=== PATIENT | male | born 1975 | race Caucasian/White ===

== ENCOUNTER 2016-06-20 10:09 | Emergency (ER) | payer BC, OTHER ==
[~2016-06-20] VITALS: Wt 109.0 kg
[2016-06-20 11:17] LABS: ADD SCAN DIFF NO
[2016-06-20 11:20] LABS: BASOPHILS % 0.5 % (0.0-2.0); EOSINOPHILS # 0.3 10^3/ul (0.0-0.5); EOSINOPHILS % 4.9 % (0.0-7.0); HEMATOCRIT 44.2 % (42.0-52.0); HEMOGLOBIN 15.3 g/dl (14.0-18.0); LYMPHOCYTES # 1.7 10^3/ul (0.8-2.9); LYMPHOCYTES % 25.7 % (15.0-51.0); MEAN CORPUSCULAR HEMOGLOBIN 29.8 pg (29.0-33.0); MEAN CORPUSCULAR HGB CONC 34.6 g/dl (32.0-37.0); MEAN PLATELET VOLUME 10.2 fl (7.4-10.4); MONOCYTE # 0.6 10^3/ul (0.3-0.9); MONOCYTES % 8.6 % (0.0-11.0); NEUTROPHIL # 3.9 10^3/ul (1.6-7.5); PLATELET COUNT 232 10^3/UL (140-415); RED BLOOD COUNT 5.14 10^6/ul (4.70-6.10); RED CELL DISTRIBUTION WIDTH 12.3 % (11.5-14.5); WHITE BLOOD COUNT 6.5 10^3/ul (4.8-10.8)
[2016-06-20 11:27] LABS: CHLORIDE 107 mmol/L (97-110); POTASSIUM 4.4 mmol/L (3.5-5.1); SODIUM 144 mmol/L (135-144)
[2016-06-20 11:29] LABS: CREATININE 0.77 mg/dl (0.61-1.24)
[2016-06-20 11:30] LABS: ANION GAP 15 (8-16); BLOOD UREA NITROGEN 19 mg/dl (7-20); CALCIUM 8.9 mg/dl (8.4-10.2); CARBON DIOXIDE 26 mmol/L (21-31); CREATINE KINASE 130 IU/L (23-200); GLUCOSE 88 mg/dl (70-220)
[2016-06-20 11:31] LABS: INR 0.92; PARTIAL THROMBOPLASTIN TIME 27.3 Sec (25.0-35.0); PROTIME 12.4 Sec (12.2-14.2)
[2016-06-20 11:44] LABS: TROPONIN-I < 0.012 ng/ml (0.00-0.12)
--- NOTE | 2016-06-20 11:50 | RADRPT ---
PROCEDURE: XR Chest. CLINICAL INDICATION: Chest pain. TECHNIQUE: Single frontal view. COMPARISON: None. FINDINGS: The lungs are clear. The heart size is normal. There is no pleural effusion. There is no pneumothorax. IMPRESSION: 1. Normal chest radiograph. RPTAT: QQ .Bernard Acevedo MD, Date Time Electronically viewed and signed by .Bernard Acevedo MD, MD on 06/20/2016 11:50 .R/
[2016-06-20 12:06] LABS: D-DIMER 233.53 ng/ml (<460)
[2016-06-20] MEDS ORDERED: LORA1TAB PO (12:08)
[2016-06-20] MEDS ORDERED: SERT100T PO (12:08)
[2016-06-20] MEDS ORDERED: IBUP800T25 PO (12:17)
--- NOTE | 2016-06-20 12:17 | ERD ---
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 HPI Pleasant 41-year-old male who presents with chest pain. He describes sudden onset of chest pain that felt like electricity on the left side of his heart that lasted approximately 1 second. This is occurred several times over the past 1-2 hours. The patient does report a recent diagnosis of rhabdomyolysis status post resolution. No new medications. He denies any pleuritic pain, family history of remote DVT and IN but no sudden . The patient is feeling better at this time. He denies any neck pain or back pain, no numbness or tingling. ROS All systems reviewed and are negative except as per history of present illness. Medications Home Meds Reported Medications Lorazepam* (Lorazepam*) 1 Mg Tablet, 1 MG PO BID Y for ANXIETY, #30 TAB 06/20/16 Sertraline Hcl* (Zoloft*) 100 Mg Tablet, 100 MG PO DAILY, #30 TAB 06/20/16 Allergies Allergies: Coded Allergies: No Known Allergy (Unverified , 06/20/16) PMhx/Soc Hx Cardiac Disorders: Yes Hx Alcohol Use: Yes Hx Substance Use: No Hx Tobacco Use: No Smoking Status: Never smoker FmHx Family History: No diabetes Physical Exam Vitals Vital Signs Date Time Temp Pulse Resp B/P Pulse Ox O2 Delivery O2 Flow Rate FiO2 06/20/16 11:02 Nasal Cannula 2 06/20/16 10:11 99.9 71 20 145/70 98 Physical Exam General: Well developed, well nourished, no acute distress Head: Normocephalic, atraumatic. Eyes: Pupils equally reactive, EOM intact ENT: Moist mucous membranes Neck: Supple, no lymphadenopathy Respiratory: Lungs clear bilaterally, no distress Cardiovascular: RRR, no murmurs, rubs, or gallops Abdominal: Soft, non-tender, non-distended, no peritoneal signs : Deferred MSK: No edema, no unilateral swelling, 5/5 strength, no pulse deficits Neurologic: Alert and oriented, moving all extremities, normal speech, no focal weakness, no cerebellar signs Skin: No rash Psych: Normal mood Result Diagram: 06/20/16 1100 06/20/16 1100 Results 24 hrs Laboratory Tests Test 06/20/16 11:00 Activated Partial Thromboplast Time 27.3Sec Anion Gap 15 Basophils # 0.010^3/ul Basophils % 0.5% Blood Urea Nitrogen 19mg/dl Calcium Level 8.9mg/dl Carbon Dioxide Level 26mmol/L Chloride Level 107mmol/L Creatine Kinase 130IU/L Creatinine 0.77mg/dl D-Dimer 233.53ng/ml D-Dimer Comment Eosinophils # 0.310^3/ul Eosinophils % 4.9% Glucose Level 88mg/dl Hematocrit 44.2% Hemoglobin 15.3g/dl INR International Normalized Ratio 0.92 Lymphocytes # 1.710^3/ul Lymphocytes % 25.7% Mean Corpuscular Hemoglobin 29.8pg Mean Corpuscular Hemoglobin Concent 34.6g/dl Mean Corpuscular Volume 86.0fl Mean Platelet Volume 10.2fl Monocytes # 0.610^3/ul Monocytes % 8.6% Neutrophils # 3.910^3/ul Neutrophils % 60.0% Nucleated Red Blood Cells # 0.010^3/ul Nucleated Red Blood Cells % 0.0/100WBC Platelet Count 41644^3/UL Potassium Level 4.4mmol/L Prothrombin Time 12.4Sec Prothrombin Time Ratio 1.0 Red Blood Count 5.1410^6/ul Red Cell Distribution Width 12.3% Sodium Level 144mmol/L Troponin I < 0.012ng/ml White Blood Count 6.510^3/ul Procedures/MDM EKG, MONITORS, & DIAGNOSTIC IMAGING: EKG: I reviewed and interpreted a 12-lead EKG. Rhythm: Normal sinus rhythm Ectopy: None Intervals: No abnormalities ST segments: No elevations or depressions T waves: No contiguous inversions Chest x-ray: I reviewed and interpreted a 1 view of the chest Mediastinum: No enlargement Cardiac silhouette: No cardiomegaly Airspace: Clear lung barrientos bilaterally without evidence of pneumothorax Bones: No evidence of fracture LAB INTERPRETATION: Normal CPK, negative troponin, normal d-dimer MEDICAL DECISION MAKING: The patient is describing very atypical chest pain. This is possibly consistent with palpitations versus pleurisy versus nonspecific chest pain. Given the patient's age and seems extremely unlikely that the patient is experiencing acute coronary syndrome. Very low clinical concern for pulmonary embolism though the patient does travel back and forth from the [facility]. The patient has no evidence of dissection no migratory pain, no significant hypertension and no neurologic symptoms. The patient does report a history of mitral valve prolapse which could explain the symptoms though no murmur on exam. The patient was additionally recently diagnosed with rhabdomyolysis that was idiopathic despite multiple workups. The patient has no signs or symptoms concerning for rhabdomyolysis currently. It seems unlikely that this is contributing to the patient's atypical chest pain. ER COURSE: The patient had thorough evaluation including d-dimer which was negative, troponin is negative, EKG is normal. Chest x-ray shows normal mediastinum. Patient is resting comfortably and grossly asymptomatic. At this time I believe we can appropriately rule out acute coronary syndrome. The patient's heart score is less than 3 making missed adverse cardiac event rate likely less than 1%. I do not believe that serial troponins were inpatient hospitalization are necessary given very atypical presentation. I do not believe this is cardiac in nature. No positional symptoms to suggest pericarditis. No fevers or chills to suggest endocarditis. The patient's chest x-ray is normal laboratory testing is also normal. D-dimer is negative. The patient can be safely discharged at this time. I advise close primary care follow-up. Given the patient's history of mitral valve prolapse. Repeat echocardiogram on a nonemergent basis would be reasonable. The patient was advised to return for any worsening symptoms, syncope or exertional symptoms. I kept the patient and/or family informed of laboratory and diagnostic imaging results throughout the emergency room course. DISPOSITION PLAN: We discussed follow up with the patient's primary care doctor within 24 to 48 hours as needed. We also discussed return to the emergency room for worsening symptoms or worsening condition. Departure Diagnosis: Primary Impression: Atypical chest pain Additional Impression: Heart palpitations Condition: DONNA Mir MD Jun 20, 2016 12:17
== END 2016-06-20 12:44 | disposition home or self-care (01) ==
LOC: E/R 10:09
DX: R07.89 Other chest pain (principal); R00.2 Palpitations
CPT/HCPCS: 36415; 71010; 80048; 82550; 82553; 84484; 85025; 85378; 85610; 85730; 93005